=== PATIENT | female | born 1955 | race Caucasian/White ===

== ENCOUNTER → 2017-09-25 | Outpatient (CLI) | payer BC ==
--- NOTE | 2017-09-25 09:10 | CT ---
EXAMINATION TYPE: CT shoulder RT wo/w con DATE OF EXAM: 09/25/2017 COMPARISON: NONE HISTORY: Rain Right Shoulder, synovitis and tenosynovitis, subacromial impingement, rotator cuff tend initis, post right humeral head replacement, possible rotator cuff tear, possible labral tear all per order.. History of partial shoulder replacement with persistent pain per patient. CT DLP: 1023 mGycm Automated exposure control for dose reduction was used. CONTRAST: Performed without and with IV Contrast, patient injected with 100 ml mL of Isovue 300. FINDINGS: There is moderate joint space loss at acromioclavicular joint most prominent posteriorly. There is mi ld irregularity along inferior margin of the acromion. There is mild to moderate capsular hypertrophy and calcification. There is metallic hardware from humeral head and stem prosthesis. This causes streak artifact limitin g evaluation. This is somewhat high in position relative to the osseous glenoid. Fairly prominent kavin nt space loss is present. Rotator cuff muscle bulk is fairly well-maintained. There is suspected some vascular calcification as well as calcified and noncalcified subcentimeter ly mph nodes in the right axilla. Visualized lungs are grossly clear. Incidental note is made of coronar y artery calcification and/or stents which is noted marker for coronary artery disease. There is dext roconvex scoliosis centered in the mid thoracic spine. Mild calcified plaque in visualized aorta is p resent. IMPRESSION: SUBOPTIMAL STUDY, CLINICAL CORRELATION WITH TYPE OF SURGERY ADVISED. 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
== END | disposition home or self-care (01) ==
LOC: RADCTMAIN 06:50
PROVIDERS: ATTEND Orthopaedic Surgery
DX: M25.511 Pain in right shoulder (principal); E11.9 Type 2 diabetes mellitus without complications; Z96.611 Presence of right artificial shoulder joint
CPT/HCPCS: 82565; 84520; 36415; 73202; Q9967